=== PATIENT | female | born 2000 | race Caucasian/White ===

== ENCOUNTER 2020-08-21 17:11 | Inpatient (IN) | payer MEDICAID, SELFPAY ==
[2020-08-21] VITALS (10 sets, daily range): BP systolic 124–147; BP diastolic 73–94; PULSE 78–101; RESP 16–20; TEMP 36.2–36.6; O2SAT 98–100; BMI 29.1
--- NOTE | 2020-08-21 17:15 | DI.RAD_ITS ---
Exam(s) XR FOREARM RT XR WRIST RT COMPLETE EXAM: XR FOREARM RT and XR wrist RT complete CLINICAL HISTORY: Dog bite, R/O Fracture/Foreign body. TECHNIQUE: 2D digital imaging was performed. COMPARISON: No previous for comparison. FINDINGS: BONES: There is an acute transverse fracture through the distal metaphysis of the left ulna with vola r displacement of the distal fracture 1/2 shaft's width. There is also a linear osseous fragment at the medial aspect of the distal metaphysis of the left radius suspicious for fracture. This appears comminuted. There lucency seen in the distal metaphysis of the radius and the distal scaphoid on the lateral view which may be osseous puncture wounds. No bony destructive lesion is seen. SOFT TISSUE: Subcutaneous air is seen. IMPRESSION: 1. Moderately displaced distal ulnar fracture. 2. Mildly comminuted and displaced fracture along the medial aspect of the distal radial metaphysis. 3. Lucency seen within the distal scaphoid and the radial metaphysis suspicious for osseous puncture defects. 4. Excessive soft tissue edema and air consistent with puncture injury. DATA REPOSITORY: RADIATION DOSE DELIVERED:
--- NOTE | 2020-08-21 17:22 | ED.GENADUL_ITS ---
Discharge Plan Disposition Patient Disposition: [facility] INPATIENT Condition: Stable Discharge Details Clinical Impression: Dog bite of forearm, Fracture of radius and ulna, distal, open Admit Date/Time: 08/21/20 18:53 Admit Provider: Max Butler Attending Provider: Max Butler Primary Care Provider: Unknown,Unknown ED Provider: Jacey Catherine Medical Decision Making 20-year-old female presents to the ER with dog bite to right forearm which occurred just prior to arrival. 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 Upon initial presentation she has a bloodsoaked longsleeved T-shirt with bite darien. On forearm noted to have approximately four puncture wounds on the dorsum and palmar aspect of her right forearm. She has significant pain with movement. She is able to wiggle her fingers. Increased pain with wrist flexion. Cap refill less than 2 seconds. Bleeding is controlled dressing applied. She reports that the dog is up-to-date on vaccinations as far she knows. Patient states she is up-to-date on her tetanus vaccination. Let applied to puncture wounds, IV morphine, Zofran ordered normal saline 500 mL bolus, x-rays forearm. Imaging protocol: XR Right wrist. Views: 3 or more views. COMPARISON: No relevant prior studies available. FINDINGS: Bones/joints: A moderately displaced fracture is seen within the distal ulna, with approximately half shaft with dorsal displacement of the proximal ulnar shaft. A puncture osseous defect and mildly displaced, mildly comminuted fracture is seen within the distal radial metaphysis. A new rounded lucency is seen within the distal pole of the scaphoid near the articulation with the trapezium which could represent a puncture osseous injury. Soft tissues: Extensive subcutaneous air and likely hemorrhage is seen. IMPRESSION: 1. Mildly displaced, mildly comminuted fracture within the distal radial metaphysis with a puncture osseous defect, represent a direct penetrating fracture/injury. 2. Moderately displaced fracture within the distal ulna. 3. Possible direct puncture osseous defect/injury within the distal pole of the scaphoid. 4. Extensive soft tissue edema and air, concordant with a direct puncture injury from a dog bite. Thank you for allowing us to participate in the care of your patient. Dictated and Authenticated by: Melissa Sexton MD Patient continues to complain of pain and request more pain medication prior to x-ray, 0.5 mg Dilaudid IV given. 1816: Spoke with Dr. Butler on-call orthopedic surgeon who was able to personally view the x-rays he agrees to come and evaluate patient for possible fracture repair and washout. Discussed x-ray results with patient verbalized understanding. Patient appears much more comfortable after additional pain medication dose of 0.5 mg Dilaudid. Patient reports last meal was around 10 AM this morning. She verbalizes and is in understanding of plan of care. Unasyn 3gm IVPB ordered. Discussed Xray results with patient. 1843: Dr. Butler here at BS for patient eval and to consent for OR and admission. plan for admission to floor and OR, encouraged NPO status. Patient and boyfriend at bedside verbalized understanding. HPI General Mode of arrival: ambulatory . Date/Time Provider Initiated Documentation: 08/21/20 17:13 . Limitations to Documentation: no limitations . Information obtained by: patient . HPI Narrative: 20-year-old female presents to the ER with dog bite to right forearm which occurred just prior to arrival. 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 Upon initial presentation she has a bloodsoaked longsleeved T-shirt with bite darien. On forearm noted to have approximately four puncture wounds on the dorsum and palmar aspect of her right forearm. She has significant pain with movement. She is able to wiggle her fingers. Increased pain with wrist flexion. Cap refill less than 2 seconds. Bleeding is controlled dressing applied. She reports that the dog is up-to-date on vaccinations as far she knows. Patient states she is up-to-date on her tetanus vaccination. Related Data Home Medications Medication Instructions Recorded Confirmed medroxyprogesterone 150 mg IM [id number] 08/21/20 08/21/20 Allergies Allergy/AdvReac Type Severity Reaction Status Date / Time No Known Allergies Allergy Unverified 08/21/20 17:32 Review of Systems All systems reviewed & are unremarkable except as noted in HPI and below Musculoskeletal Musculoskeletal: Reports as per HPI, Reports deformity (Approximately four puncture wounds largest on the dorsum of her right forea), Reports arthralgias and Reports limited range of motion Integumentary/Breasts Skin/Breast: Reports lesions and Reports wounds (Dog bite) [facility] Social History Smoking/Tobacco Use Status: Never Smoking risk assessment performed?: Yes Alcohol Intake: current Alcohol Intake frequency: holidays/special occasions only Drug use: Daily Substance use type: marijuana Do you feel safe at home: Yes Do you feel safe in your relationship?: Yes Exam Const General: cooperative, healthy appearing, well developed, well groomed, in distress moderate and anxious Nutritional Appearance: average body habitus and well nourished Orientation: alert, awake and oriented x3 HENMT Head: normal to inspection, no palpable skull fracture, normocephalic and atraumatic Ears: hearing grossly normal bilaterally and external ears normal General nose exam: external nose normal and nares normal Face and sinus: normal facial exam and face symmetric Mouth: oral mucosae normal and lip normal Eyes General: appearance normal, both eyes and all related structures Neck Neck: normal visual inspection Resp Effort & Inspection: normal respiratory effort and able to speak in complete sentences Auscultation: clear to auscultation bilaterally Cardio Palpation: normal PMI Rate: regular rate Rhythm: regular rhythm Heart Sounds: S1 normal and S2 normal GI Inspection: normal to inspection, no edema and non-distended Palpation: soft Neuro General: patient alert, patient awake and patient oriented x3 Cranial Nerves: CN's II-XI intact bilaterally Cognition: normal cognition Speech: speech normal Extrem Right upper extremity: normal capillary refill, elbow/forearm Details: laceration and wrist Details: tenderness, swelling, abnormal ROM, penetrating wound forearm dorsal Details: multiple, normal vascular exam (Sensation intact) and radial pulse present Left upper extremity: normal to inspection, full ROM and normal capillary refill Elbow/forearm/wrist images: 1. Approximately 2.5 cm laceration 2. Puncture 3. Puncture wound 4. Puncture wound
[2020-08-21] MEDS: Ondansetron 4 MG/2 ML VIAL IVP (17:31)
[2020-08-21] MEDS: Normal Saline Flush 10 ML SYR IVP (17:31)
[2020-08-21] MEDS: Lidocaine/Epinephri/Tetracaine Topical Gel 3 ML TP (17:32)
[2020-08-21] MEDS: HYDROmorphone 2 MG/ML VIAL 0.5 MG IVP (18:15)
[2020-08-21] MEDS: Normal Saline 500 ML IV (18:16)
[2020-08-21] MEDS: AMPICILLIN/SULBACTAM 3 GM in Normal Saline 100 ML IVPB (18:27)
--- NOTE | 2020-08-21 18:50 | DI.VRAD_ITS ---
PROCEDURE INFORMATION: Exam: XR Right Wrist Exam date and time: 08/21/2020 5:55 PM Age: 20 years old Clinical indication: Injury or trauma; Other: Dog bite; Work related; Wrist; Left TECHNIQUE: Imaging protocol: XR Right wrist. Views: 3 or more views. COMPARISON: No relevant prior studies available. FINDINGS: Bones/joints: A moderately displaced fracture is seen within the distal ulna, with approximately half shaft with dorsal displacement of the proximal ulnar shaft. A puncture osseous defect and mildly displaced, mildly comminuted fracture is seen within the distal radial metaphysis. A new rounded lucency is seen within the distal pole of the scaphoid near the articulation with the trapezium which could represent a puncture osseous injury. Soft tissues: Extensive subcutaneous air and likely hemorrhage is seen. IMPRESSION: 1. Mildly displaced, mildly comminuted fracture within the distal radial metaphysis with a puncture osseous defect, represent a direct penetrating fracture/injury. 2. Moderately displaced fracture within the distal ulna. 3. Possible direct puncture osseous defect/injury within the distal pole of the scaphoid. 4. Extensive soft tissue edema and air, concordant with a direct puncture injury from a dog bite. Dictated and Authenticated by: Melissa Sexton MD. Ordering:MARINA Mari MD
--- NOTE | 2020-08-21 18:51 | DI.VRAD_ITS ---
PROCEDURE INFORMATION: Exam: XR Right Forearm Exam date and time: 08/21/2020 5:22 PM Age: 20 years old Clinical indication: Injury or trauma; Other: Bite by pitbull; Work related; Wrist; Left TECHNIQUE: Imaging protocol: XR Right forearm. Views: 2 views. COMPARISON: No relevant prior studies available. FINDINGS: Bones/joints: A moderately displaced fracture is seen within the distal ulna, with approximately half shaft with dorsal displacement of the proximal ulnar shaft. A puncture osseous defect and mildly displaced, mildly comminuted fracture is seen within the distal radial metaphysis. A new rounded lucency is seen within the distal pole of the scaphoid near the articulation with the trapezium which could represent a puncture osseous injury. Soft tissues: Extensive subcutaneous air and likely hemorrhage is seen throughout the forearm. IMPRESSION: 1. Mildly displaced, mildly comminuted fracture within the distal radial metaphysis with a puncture osseous defect, represent a direct penetrating fracture/injury. 2. Moderately displaced fracture within the distal ulna. 3. Possible direct puncture osseous defect/injury within the distal pole of the scaphoid. 4. Extensive soft tissue edema and air, concordant with a direct puncture injury from a dog bite. Dictated and Authenticated by: Melissa Sexton MD. Ordering:MARINA Mari MD
[2020-08-21] MEDS: ACETAMINOPHEN 1,000 MG/100 ML BTL 400 MG IVPB (19:36)
--- NOTE | 2020-08-21 19:42 | OCONE_ITS ---
Date of service: 08/21/20 Time of Service: 18:44 History of Present Illness History of Present Illness Chief Complaint: Right Forearm Dogbite Narrative: Kathrin is a 20-year-old [id number] female who presents to the emergency department after an aggressive dog bite by a pit bull to her right forearm. She is attempting to train the dog when the dog clamped down onto her arm. There is vigorous movement of the dog's head resulting in a crunching sensation that Kathrin heard. Eventually, she was released from the prescription but there is notable wounds to the right distal forearm. She currently reports excruciating pain about the right forearm, mostly dorsal and ulnar as well as volar at the level of the wrist. She feels unable to move any of the flexor or extensor tendons. This is due to pain. She denies numbness or tingling. She has no significant medical history. She denies pain in the elbow or any other sites of injury. Consults Consult date: 08/21/20 Requesting physician: Jacey Catherine Consult Reason Right open forearm fractures Assessment and Plan Assessment and plan (1) Dog bite of forearm: Status: Acute Qualifiers: Encounter type: initial encounter Laterality: right Qualified Code(s): S51.851A - Open bite of right forearm, initial encounter; W54.0XXA - Bitten by dog, initial encounter (2) Fracture of radius and ulna, distal, open: Status: Acute Assessment and plan: Kathrin is a 20-year-old [id number] female who suffered a vicious dog bite to the right forearm. This is a crush type injury to the forearm with resulting open fractures of the distal radius and the ulna. The ulna fracture is notably displaced. There is also a puncture wound near this area which would suggest direct penetration into the bone both of the ulna and of the radius. Given these injuries alone they deserve to be fully irrigated and debrided. Unfortunately, her examination is notably limited. She does not have any numbness or tingling but she does have significant pain with any palpation or attempted passive motion of the fingers. Therefore, I must consider an ongoing and developing compartment syndrome. This would fit with the mechanism of injury, dog bite from a pit bull. This not only involves the intense bite but also the generations of the dog's head at the same time. With this information the examination I recommend urgent irrigation and debridement of the bite wounds. I would also directly irrigate and debride the bony injuries and likely reduce and pin the distal ulna. Fortunately, she does not seem to have any vascular or nerve injury. However, I do believe she may have a developing compartment syndrome of the forearm due to the amount of pain and pain with passive motion. At the time of the operation I would perform an open decompression of the volar, distal forearm. If there is bulging of the muscle in this area then I would continue to extend that as large as needed to decompress the volar compartment. Given no current neurologic symptoms I do not think we have to decompress the carpal tunnel. Given her clinical presentation compartment syndrome has to be considered. I would therefore leave the wound open and plan for return to the to the operating room for reevaluation and closure in 48 hours. I would also keep her on IV antibiotics to cover for gram- negative organisms likely from the mouth of the dog. I discussed the technical procedures. She does express concern about her tattoo on her forearm but I was very honest with Kathrin that not decompressing an ongoing compartment syndrome could be devastating. There is clear evidence that the sooner this is release to better and any delay in treatment will lead to dysfunction of the hand and forearm. She did receive a dose of Unasyn in the emergency department. I offered to redress the wounds but she would asked that I do not touch her arm anymore. Therefore, she is dressed in light wet gauze wrapped on a Wilfrido splint. I reviewed the risk of the procedure to include bleeding, infection, pain, stiffness, damage to nerves and vessels, damage to muscle tendons, need for repeat procedures, need for plastic surgery skin closure, malunion, nonunion, hardware failure. Despite these risks, she elects to proceed. Qualifiers: Encounter type: initial encounter Open fracture type: open type I or II Laterality: right Qualified Code(s): S52.501B - Unspecified fracture of the lower end of right radius, initial encounter for open fracture type I or II; S52.601B - Unspecified fracture of lower end of right ulna, initial encounter for open fracture type I or II Review of Systems All systems reviewed & are unremarkable except as noted in HPI and below [facility] Social History Smoking/Tobacco Use Status: Never Smoking risk assessment performed?: Yes Alcohol Intake: current Alcohol Intake frequency: holidays/special occasions only Drug use: Daily Substance use type: marijuana Do you feel safe at home: Yes Do you feel safe in your relationship?: Yes Exam Narrative Exam Narrative: Kathrin is sitting up in the hospital stretcher. Her right arm is loosely bandaged and resting on a WILFRIDO splint. She is holding the hand and fingers in a slightly flexed position on the splint itself. She refuses any direct examination due to pain. Unable to evaluate the forearm which shows multiple puncture wounds over the dorsum of the hand. The largest 1 in the transverse laceration at approximately the mid distal third of the dorsal forearm. There is fat evident within the wound itself. There at least 3 of the puncture wound is seen more distally over the dorsum, 1 at the level of the ulna. Volarly, she is very difficult to examine due to a slightly flexed posture. She has excruciating pain with any direct palpation or attempted extension of the fingers of the wrist. There is notable swelling over the volar aspect of the distal forearm with only 1 small puncture wound seen off to the side. There is hyperemia seen in this area and some early ecchymosis. It would appear that the teeth did not penetrate on the volar side like it did on the dorsal side. She does have a palpable radial pulse although she has pain with direct palpation of this area. She has cap refill less than 2 seconds. She endorses full sensation of the median, radial, ulnar nerve. She is unable to demonstrate any active finger function due to pain. Likewise, any passive evaluation is significant limited due to pain. Results Last Vital Signs Pulse 78 08/21/20 17: Resp 20 08/21/20 17:21 BP 140/81 08/21/20 17:21 Pulse Ox 99 08/21/20 17:21 Imaging Imaging Studies: X-ray of the right wrist and forearm demonstrate an open fracture of the distal radius and ulna. Distal ulna is fractured at the level of her phi seal scar. There is complete displacement of the distal aspect of the distal ulna. There appears to be penetrating teeth bite into the distal radius with associated fracture of the metaphysis with some mild comminution of the ulnar aspect of the distal radius. There is no displacement of the fracture. There is no malalignment. There is notable air within the soft ti ssues due to the open injury.
[2020-08-21 19:50] LABS: Source Nasal/Nares
[2020-08-21] MEDS: Ketorolac 15 MG/ML VIAL IVP (19:57)
--- NOTE | 2020-08-21 20:26 | W.ANESPRE ---
General Info Date of Service Date Performed: 08/21/20 Height: 5 ft 5 in Weight: 79.379 kg Body Mass Index (BMI): 29.1 Meds Allergies and Home Medications Allergies Allergy/AdvReac Type Severity Reaction Status Date / Time No Known Allergies Allergy Unverified 08/21/20 17:32 Home Medication Medication Instructions Recorded medroxyprogesterone 150 mg IM [id number] 08/21/20 Current Visit Medications: Current Medications Generic Name Dose Route Start Last Admin Trade Name Freq PRN Reason Stop Dose Admin Hydromorphone HCl 1 mg 08/21/20 18:52 Hydromorphone 2 Mg/Ml Vial IVP Q2H PRN PRN Sodium Chloride 500 mls @ 0 mls/hr 08/21/20 17:20 Saline 500ml Bag IV PRN PRN As Directed Acetaminophen 1,000 mg in 100 mls @ 400 mls/hr 08/21/20 19:00 08/21/20 19:51 Ofirmev IVPB Infused Q8H JUAN JOSE Infusion Ringer's Solution 1,000 mls @ 100 mls/hr 08/21/20 19:00 IV INFUSION JUAN JOSE IV Miscellaneous Supplies 1 each 08/21/20 17:30 Iv Access IV DIRECTED JUAN JOSE Ketorolac Tromethamine 15 mg 08/21/20 18:52 08/21/20 19:57 Ketorolac 15 Mg/Ml Vial IVP 08/26/20 18:51 15 mg Q6H PRN PRN Administration Ondansetron HCl 4 mg 08/21/20 18:52 Ondansetron 4 Mg/2 Ml Vial IVP Q6H PRN PRN Nausea Sodium Chloride 0 ml 08/21/20 17:20 08/21/20 17:31 Normal Saline Flush 10 Ml Syr IVP 20 ml PRN PRN Administration PFSH Active Problems Active Problems: Problem Status Onset Code Dog bite of forearm S51.859A, W54.0XXA Fracture of radius and ulna, distal, open S52.509B, S52.609B Tobacco Smoking/Tobacco Use Status: Never Alcohol Alcohol Intake: current Alcohol intake frequency: holidays/special occasions only Substance Use Substance use: Daily Substance use type: marijuana Vital Signs and Lab Results Vital Signs Most Recent Vital Signs in EMR: Most Recent Vital Signs Temp Pulse Resp BP Pulse Ox 36.5 C 84 16 134/79 98 06/14/21 19:45 08/21/20 19:45 08/21/20 19:45 08/21/20 19:45 08/21/20 19:45 Lab Results Blood Type / Crossmatch: No Data to Display Complete Blood Count: No Data to Display Complete Metabolic Panel: No Data to Display Liver Function Panel: No Data to Display Coagulation Panel: No Data to Display Cardiac Panel: No Data to Display Arterial Blood Gas: No Data to Display Venous Blood Gas: No Data to Display Pancreas Panel: No Data to Display Thyroid Panel: No Data to Display Infectious Disease: Coronavirus (COVID-19)(PCR) Pending 08/21/20 19:12 08/21/20 Coronavirus 2019 Source Nasal/nares 08/21/20 19:12 08/21/20 Blood Cultures: No Data to Display Toxicology Panel: No Data to Display Panel: No Data to Display Anesthesia Assessment and Plan Anesthesia History Personal History: No History of Anesthesia Complications Family History: No Family History of Anesthesia Complications Exercise Tolerance Exercise Tolerance: Metabolic Equivalents>4 Pertinent Negatives Pertinent Negatives: No Symptoms of GERD (Well controlled ), No Major Cardiovascular Symptoms or Complaints, No Major Pulmonary Symptoms or Complaints (+ snores, vaping ), No History of CVA/TIA and Other Cardiac & Pulmonary Exam Cardiac Exam: Normal S1/S2 Heart Sounds Pulmonary Exam: Clear Bilateral Breath Sounds Airway Exam Known Difficult Airway: No Mallampati Class: 4 Mouth Opening: Narrow (< 3cm) Thyromental Distance: Less than 3 cm Neck Range of Motion: Full ROM Neck Circumference: Normal Teeth Condition: Normal Dentition ASA Classification ASA Score: ASA 2 Emergency Case?: Yes NPO Status NPO Status: NPO Clears >2 hours, Solids >8 hours Status Status: Not Per Patient and Pt. refuses testing, she was counseled on anesthesia risks Anesthesia Plan Resuscitation Status: Full Code Anesthesia Technique: General Anesthesia Airway Planned: Endotracheal Tube Monitors Used: Standard Monitors
--- NOTE | 2020-08-21 20:45 | DI.RAD_ITS ---
Exam(s) XR WRIST RT LIMITED EXAM: XR WRIST RT LIMITED CLINICAL HISTORY: OPEN RADIUS ULNA FX TECHNIQUE: 2D and realtime digital imaging was performed. CONTRAST MATERIAL: Refer to procedure report. COMPARISON: No exams were available for comparison FINDINGS: Fluoroscopy was provided for Dr. Butler during the performance of a reduction and percutaneous pin divya of the ulnar fracture. Please refer to the procedure report for complete details. Ka,r=0.7 mGy IMPRESSION: RADIATION DOSE DELIVERED:
[2020-08-21] MEDS: Lactated Ringers 1,000 ML 100 ML IV (21:25)
[2020-08-21] MEDS: Bupivacaine 0.25% Pres-Free 30 ML VIAL (22:24)
[2020-08-21 23:09] LABS: COVID-19 PCR Negative (Negative)
--- NOTE | 2020-08-21 23:09 | ROE_ITS ---
Date of service: 08/21/20 Time of Service: 23:09 Operative Note Operative Note DATE OF PROCEDURE: 08/21/20 PRE-OP DIAGNOSIS: Open Right Distal Radius And Ulna Fracture from Dog Bite POST-OP DIAGNOSIS: same PROCEDURE: Irrigation and Debridement of Right Forearm Dog Bite and Open Distal Radius and Ulna Fracture, Open Reduction and Pinning of Distal Ulna Fracture SURGEON: Max Butler CABLE INSTALLATION TECHNICIAN: Genet Schwab ANESTHESIA TYPE: General LMA/ETT Refer to Anesthesia Record ESTIMATED BLOOD LOSS: 5 PATHOLOGY: none sent TOURNIQUET TIME: 0 COMPLICATIONS: None Patient was transported to: PACU Patient's condition: stable Indications: 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 The dog grabbed hold of her right arm and caused an open distal radius and ulna fracture. She is seen in the emergency department I recommended operative intervention. I reviewed the risk of the procedure to include bleeding, infection, pain, stiffness, damage to nerves and vessels, damage to muscle and tendons, need for the procedures, skin healing difficulty, weakness. Despite these risk, she elects to proceed. Findings: The bulk of the trauma was dorsal. There is significant muscular damage throughout the dorsum of the forearm, however, tendons of all 6 compartments over the dorsum of the arm are intact. There is stripping of soft tissue from the dorsal aspect the distal ulna with a displaced fracture of the distal most aspect of the ulna. Additionally, there are 2 puncture wounds into the radius however there is no true fracture line appreciated traversing the entirety of the distal radius metaphysis. The volar and dorsal compartments were relatively soft and were able to be closed without tension. Procedure Description: Kathrin was greeted in the preoperative holding area. Her identity and site were confirmed. The consent was reviewed the patient signed in the emergency department. She is taken to the operating room placed in supine position. General anesthetic was administered. The right arm was placed onto a hand table. A thorough examination of the right arm was performed while she was under anesthesia and prior to starting the case. This showed that the volar forearm was quite soft. She limited any significant examination in the emergency department but on the hand table there was no tenseness at all to the arm. There is only 1 puncture wound seen on the volar aspect and then just some generalized hyperemia and ecchymosis of the skin. At this point, I do not think would be necessary to perform the compartment release volarly although we would open up the volar compartment through one of the puncture sites to investigate. She did receive 1 dose of Unasyn in the emergency department on arrival and she received 2 g of cefazolin preoperatively for prophylactic treatment. A timeout was performed for safe surgery. The right upper extremity was prepped with Betadine. A longitudinal incision was made over the dorsum of the forearm connecting some of the puncture wounds of the forearm. Immediately, there was notable muscular damage seen within the dorsal forearm. The majority of his damage occurred at the level of the musculotendinous junction in the distal one third of the forearm. There were tendons visible within the wound with some not having any muscular attachments. There is no gross debris. There is no necrotic tissue. At this point, an inventory of the dorsal anatomy was taken. I started with the first compartment and went through all 6 dorsal extensor compartments to evaluate the tendons to make sure the tendons were attached and there is no tendon damage. There was substantial muscular damage associated with these muscle?tendon unit, however, all tendons were intact. Once this was completed I then further investigated the bony injury. There is notable periosteal and deep damage to the distal ulna. There is a small hole within the extrinsic ligaments around the DRUJ where the distal ulna was broken. Over the dorsal, distal radius there were 2 puncture wounds seen with a small bony fragment associated with the more ulnar 1. However, further investigation did not show any traversing fracture line noted manipulation of the radius show any instability of the distal radius. 2 L of normal saline were then irrigated through the arm in this region pain reticular attention to the bony injuries as well. Attention was then turned to the volar wound. A 4 cm incision was made over the volar?ulnar aspect of the distal radius. This was taken down sharply the skin. There was a small puncture of the fascia in this area but there was no muscular damage is seen on the dorsal side. The volar fascia was incised and there was no protruding muscle appreciated. With the fascia elevated into different directions I was able to palpate the volar forearm. There is no notable tissue damage seen like on the dorsum. The flexor tendons were identified. They were retracted and the median nerve was identified. While there was some ecchymosis in this area there is no torn tissue. Once again, the muscle was soft compartments were soft and there is no bulging. I then irrigated these wounds with another 1 L of normal saline. Further attention was then turned to the distal ulna fracture. This is highly unstable. With a volar directed force against the distal ulna I was able to reduce the distal ulna and confirmed this visually through the dorsal wound. A 0.045 K wire was then inserted to the ulnar skin and advanced onto the tip of the styloid. This was then advanced across the distal ulna. Maintaining reduction was challenging but we were able to obtain adequate reduction with a single K wire confirmed with fluoroscopy. This appeared stable. There was some disruption of the DRUJ but this seemed also more stable once this fracture fragment was pinned. A small amount of the disruption of the DRUJ ligaments were then sutured together with a #3-0 Vicryl. A second look was performed and while there was some skin damage at the skin edges there is no other necrotic tissue apparent. I used #3-0 Vicryl to reapproximate the skin edges loosely and then used a 4-0 nylon to close the skin in interrupted fashion. This was done both dorsal and volar without difficulty. No tourniquet was used and there was no significant blood loss. Fingers remain warm and well-perfused in the case. The K wire was then cut and bent off the skin. Xeroform was applied underneath the K wire as well as on the dorsal and volar wounds. A Frandy ball was placed on the end of the K wire. The wounds were then padded with 4 x 4s and wrapped loosely with Kerlix for padding. A short arm splint was then applied with the wrist in some extension for reapproximation of the muscle of the dorsal forearm. She was in awaken from anesthesia and transferred back to the hospital bed in stable condition. She is taken to the PACU for recovery. At the end the case all counts are correct. There was significant muscular damage which was unable to be repaired directly but the tendons were still intact and therefore does have prognosis to regain function about the extensors of the hands finger. I do worry about skin breakdown, however, in the situations the true extent of the injury will not be readily visible for another few days if not longer. This will need to be followed in the very well may require secondary scar revision. She will be kept overnight for evaluation and monitoring. She is to keep the right upper extremity elevated at all times. We will administer at least 24 hours of Unasyn postoperatively the potential discharge to home tomorrow depending on how she is doing with pain control.
[2020-08-22] VITALS (7 sets, daily range): BP systolic 124–142; BP diastolic 73–84; PULSE 68–100; RESP 17–18; TEMP 36–37; O2SAT 96–99
[2020-08-22] MEDS: Normal Saline 500 ML 30 ML IV (00:15)
[2020-08-22] MEDS: oxyCODONE 5 MG TAB PO ×3 (00:47→14:44)
[2020-08-22] MEDS: AMPICILLIN/SULBACTAM 3 GM in Normal Saline 100 ML IVPB ×3 (00:48→12:11)
[2020-08-22] MEDS: Ketorolac 15 MG/ML VIAL IVP ×2 (02:02→07:55)
[2020-08-22] MEDS: ACETAMINOPHEN 1,000 MG/100 ML BTL 400 MG IVPB (03:57)
[2020-08-22] MEDS: Lactated Ringers 1,000 ML 100 ML IV (03:58)
[2020-08-22] MEDS: HYDROmorphone 2 MG/ML VIAL 1 MG IVP (09:21)
[2020-08-22] MEDS: Ondansetron 4 MG/2 ML VIAL IVP (09:39)
--- NOTE | 2020-08-22 10:13 | PGE_ITS ---
Date of Service Date of service: 08/22/20 Time of Service: 10:13 Assessment and Plan Assessment and plan (1) Fracture of radius and ulna, distal, open: Status: Acute Qualifiers: Encounter type: initial encounter Open fracture type: open type I or II Laterality: right Qualified Code(s): S52.501B - Unspecified fracture of the lower end of right radius, initial encounter for open fracture type I or II; S52.601B - Unspecified fracture of lower end of right ulna, initial encounter for open fracture type I or II (2) Dog bite of forearm: Status: Acute Assessment and plan: Kathrin is postop day #1 from irrigation debridement of right open distal radius and ulna fractures from a dog bite with pinning of the distal ulna. At the time of surgery the volar compartment is notably soft. There was blunt trauma to the volar side the form from the dog bite where the majority of the trauma seem to be focused over the dorsum. I did perform a limited opening of the volar forearm with inspection of the volar tissues and skin closure. She does have some pain with passive extension but this is to be expected from the injury. I do not think this represents a developing com partment syndrome. However, I think is important we continue to follow. I like her to stay through the day today for further observation. She has only had 2 pain pills which is to be expected. If we see increasing pain requirements and decreasing tolerance of passive extension then I think return to the operating room for a second look and possible volar compartment release may be necessary. She will continue on Unasyn for prophylactic infection treatment due to the dog bite. She is to keep the right arm elevated as much as possible. We will reevaluate his afternoon. Qualifiers: Encounter type: initial encounter Laterality: right Qualified Code(s): S51.851A - Open bite of right forearm, initial encounter; W54.0XXA - Bitten by dog, initial encounter Subjective Subjective Interval history since last seen: Kathrin reports to be having some pain about the right hand. She describes it mostly as the ache. She has received 2 doses of oxycodone since last night. She does have some current nausea. She denies any numbness or tingling of the hand. Exam Narrative Exam Narrative: Sitting upright in the bed. Right upper extremity is splinted. Her hand is in a slightly extended position to the wrist with flexion of the fingers. There is no significant discoloration of the fingers nor notable swelling. Cap refill less than 2 seconds. On testing she does have some reported tingling over the palmar aspect of the thumb. The radial and ulnar nerve are completely intact with gross sensation. The remainder of the median nerve testing is also grossly intact to the palmar aspect of the index and middle finger. She is able demonstrate some thumb extension and flexion. She is very reluctant to do any finger extension or flexion. She tolerates passive extension although this was not pushed knowing the injury of the dorsum of the forearm. She was able to allow me to passively extend the fingers fully although this causes pain. Once I moved him twice that she seemed to tolerate this. Objective Last Vital Signs Temp 37.0 C 08/22/20 07:56 Pulse 93 H 08/22/20 07:56 Resp 18 08/22/20 07:56 BP 142/82 H 08/22/20 07:56 Pulse Ox 96 08/22/20 07:56 Laboratory Results - last 24 hr 08/21/20 19:12 COVID-19 Source Nasal/nares SARS-CoV-2 (PCR) Negative
--- NOTE | 2020-08-22 11:46 | INITIAL_ITS ---
- If Service Date Differs Date of service: 08/22/20 Time of Service: 11:46 Care Management Initial Assess REASON FOR HOSPITALIZATION:: Right Open Forearm fracture from dog bite PAST MEDICAL HISTORY/PAST SURGICAL HISTORY:: No significant medical/surgical history reported. PREVIOUS FUNCTIONAL STATUS/SOCIAL/FAMILY SUPPORTS:: Kathrin lives in [place]. 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 She is independent at baseline. CURRENT FUNCTIONAL STATUS:: Kathrin was walking around her room when CM met with her. She described the event that brought her here- she was training a dog for the first time and it bit her aggressively. She expressed concern about her other classes which she had to cancel this week due to her injury. Dr. Butler visited during the conversation, and reported that as long as her pain is well controlled, she should be able to return home this afternoon. She is agreeable to returning home. CM will continue to follow. ADVANCE DIRECTIVES:: None on file, CM will offer forms. Has patient been provided with info about the portal/API?: Yes Did the patient sign up for the portal?: No CODE STATUS:: Full Code INSURANCE COVERAGE / FINANCIAL ISSUES:: [employer] CURRENT HOME/COMMUNITY SERVICES/EQUIPMENT:: No current services or equipment. PRIMARY CARE PHYSICIAN:: unknown POTENTIAL DISCHARGE NEEDS:: PCP attachment, follow up appt PATIENT/FAMILY EDUCATION NEEDS:: Review discharge instructions, discussion of self care needs including ask me three. ANTICIPATED BARRIERS TO DISCHARGE:: None identified. TRANSPORTATION:: Via private vehicle by her s/o. PLAN:: Kathrin will return home with no services at this time. Her s/o will drive her home via private vehicle. She will follow up with Ortho and discharge plan of care. She is happy to be returning home today.
--- NOTE | 2020-08-22 12:58 | DSE_ITS ---
Date of service: 08/22/20 Time of Service: 12:59 DS: Diagnosis Discharge Diagnosis (1) Fracture of radius and ulna, distal, open: Status: Acute (2) Dog bite of forearm: Status: Acute Discharge Plan Disposition Condition: Stable Discharge Details Reason For Visit: Right Open Forearm Fracture From Dog Admit Date/Time: 08/21/20 18:53 Admit Provider: Max Butler Attending Provider: Max Butler Primary Care Provider: Unknown,Unknown Hospital Course Hospital Course: Kathrin was admitted to the medical surgical floor after undergoing urgent irrigation debridement of open wounds and fractures of her right forearm. She tolerated the procedure well and received both preoperative and postoperative antibiotics with gram-negative coverage. Her pain was controlled postoperatively on oral analgesics. While she did have some pain that appeared to be stable and not representing compartment syndrome. Home Meds and New Rx's Prescriptions: New acetaminophen 500 mg tablet 500 mg PO Q6H PRN PRN (Reason: pain) Qty: 40 RF: 3 hydrocodone-acetaminophen 5-325 mg tablet 1 tab PO Q4H PRN (Reason: pain) Qty: 8 RF: 0 amoxicillin-pot clavulanate 875-125 mg tablet 1 tab PO BID Qty: 10 RF: 0 Continued medroxyprogesterone 150 mg/mL suspension 150 mg IM [id number] RF: 0 Discharge Instructions Additional Instructions: Activity: You should keep the hand/wrist elevated as much as possible. You may perform light activities with the splint in place. Use her other hand to move the fingers up and down, passive motion, as much as she would like. If he has significant increase in pain with any attempt at this passive motion, please contact our [facility] immediately and/or go to the emergency department. Dressing/Cast: Your splint should stay in place at all times. Do NOT get it wet. You may loosen the BRIANNA wrap if you feel it is too tight and then rewrap more loosely. Medications: - You should take Tylenol (500mg every 6 hours) and Ibuprofen (600mg every 8 ho urs) for baseline pain control. - You have been prescribed a stronger pain medication, Hydrocodone, for breakthrough pain. - You may apply ice over the wrist, just double bag so it doesn't get wet. Follow-up: 10-14 days Stand Alone Forms: Nursing Discharge Form Referrals: [facility],Max G, MD [ [facility] STAFF PHYSICIAN] - Equipment/Supplies: Splint and Sling Activity:: Elevate Remove Dressings/Wound Care:: Do Not Remove Shower/Bathe:: Cover Diet:: As Tolerated DS: Summary Time Spent with Patient providing and/or coordinating discharge services: Less than 30 minutes Status at Discharge Functional status at discharge: independent ambulation Overall status at discharge: patient is not back to baseline Mental Status: mental status grossly normal Speech and Movement: speech and movement normal Mood: congruent mood Affect: normal affect Exam Psych Mental Status: mental status grossly normal Speech and Movement: speech and movement normal Mood: congruent mood Affect: normal affect DS: Data Vitals/I&O Vitals and I&O: Vital Signs Temperature 36.8 C 08/22/20 11:28 Temperature Source Tympanic 08/22/20 11:28 Pulse 100 H 08/22/20 11:28 Pulse Rhythm Regular 08/22/20 07:55 Respiratory Rate 18 08/22/20 11:28 Respiratory Effort Non-Labored 08/22/20 07:55 Respiratory Depth Normal 08/22/20 07:55 Respiratory Pattern Normal 08/22/20 07:55 Blood Pressure 130/76 08/22/20 11:28 Blood Pressure Position Sitting 08/21/20 17:21 Pulse Oximetry 98 08/22/20 11:28 Oxygen Delivery Method Room Air 08/22/20 11:28 Oxygen Flow Rate 0 08/22/20 11:28 Pain Level 4 08/22/20 11:28 Comment 08/22/20 01:00 Intake & Output 08/21/20 08/22/20 08/22/20 23:59 11:59 23:59 Intake Total 730 / 730 1001.5 / 1001.5 Output Total 0 / 0 728 / 728 Balance 730 / 730 273.5 / 273.5 Weight 79.379 kg Intake: IV 700 / 700 1001.5 / 1001.5 Oral 30 / 30 Output: Urine 728 / 728 Emesis 0 / 0 Other: Urine Color Light [place] Urine Appearance Clear Urine Odor Strong Comment Kathrin did not use call beel to ambulate to multiple times. Denies and voiding concerns. Emesis Description None Voiding Methods Toilet Data Completed and Pending Labs on day of discharge: Labs from last 24 hours 08/21/20 19:12 COVID-19 Source Nasal/nares SARS-CoV-2 (PCR) Negative [facility] Social History Smoking/Tobacco Use Status: Never Smoking risk assessment performed?: Yes Alcohol Intake: current Alcohol Intake frequency: holidays/special occasions only Drug use: Daily Substance use type: marijuana Do you feel safe at home: Yes Do you feel safe in your relationship?: Yes
--- NOTE | 2020-08-22 14:26 | W.ANESPOSTOP ---
Postoperative Evaluation Date, Time and Location Date Performed: 08/22/20 Time Performed: 14:27 Patient Location: Med/Surg Vital Signs Most Recent Imported Vital Signs: Most Recent Vital Signs Temp Pulse Resp BP Pulse Ox 36.8 C 100 H 18 130/76 98 08/22/20 11:28 08/22/20 11:28 08/22/20 11:28 08/22/20 11:28 08/22/20 11:28 Pain Score Most Recent Pain Score: Most Recent Pain Score Pain Level 4 08/22/20 11:28 Assessment Mental Status: Awake (Alert & Oriented to Patient Baseline) Airway and Respiratory Function: Patent airway with normal (patient baseline) respiratory exam Cardiovascular Function: Hemodynamically Stable Hydration Status: Adequately Hydrated Nausea & Vomiting: No Nausea or Vomiting Pain: Pain is tolerable/mild (<5/10) Peripheral Nerve Block: Patient did not receive a nerve block
--- NOTE | 2020-08-22 16:48 | PDOC.CMDIS ---
- If Service Date Differs Date of service: 08/22/20 Time of Service: 16:48 LACE Index Scoring Tool - Questions: Length of Stay (in days): 1 Acuity (Admit via E.D.?): Yes E.D. Visits: 1 - Answers: Total Score: 5 Risk of Readmission: Low Risk Care Management Discharge Reason for Hospitalization: Right Open Forearm fracture from dog bite Discharge Plan: Kathrin will return home with no services at this time. Her s/o will drive her home via private vehcile. She will follow up with Ortho, her PCP and discharge plan of care. She is happy to be going home today. Patient/Family Education Needs: Review discharge instructions regarding activity levels and medications, discussion of self care needs including ask me three.
--- NOTE | 2020-08-23 10:23 | CHAPLAIN ---
Kathrin was resting in bed when I visited. She told me about the dog bite that led to her arm being fractured in two place. 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 Kathrin said the dog bite her very aggressively.
--- NOTE | 2020-08-23 10:36 | W.ANESPOSTOP ---
Postoperative Evaluation Date, Time and Location Date Performed: 08/23/20 Time Performed: 10:37 Patient Location: Day Surgery Unit Vital Signs Most Recent Imported Vital Signs: Most Recent Vital Signs Temp Pulse Resp BP Pulse Ox 36.8 C 100 H 18 130/76 98 08/22/20 11:28 08/22/20 11:28 08/22/20 11:28 08/22/20 11:28 08/22/20 11:28 Most Recent Vital Signs Temp Pulse Resp BP Pulse Ox 36.8 C 100 H 18 130/76 98 08/22/20 11:28 08/22/20 11:28 08/22/20 11:28 08/22/20 11:28 08/22/20 11:28 Most Recent Manually Entered Vital Signs: Adult Blood Pressure: 117/71 Heart Rate: 72 Respirations: 16 Oxygen Saturation (%): 99 Temperature (C): 36.5 C Pain Score (0-10 Scale): 0 Pain Score Most Recent Pain Score: Most Recent Pain Score Pain Level 8 08/22/20 14:44 Assessment Mental Status: Awake (Alert & Oriented to Patient Baseline) Airway and Respiratory Function: Patent airway with normal (patient baseline) respiratory exam Cardiovascular Function: Hemodynamically Stable Hydration Status: Adequately Hydrated Nausea & Vomiting: No Nausea or Vomiting Pain: Pt. Denies Any Pain Peripheral Nerve Block: Patient did not receive a nerve block
== END 2020-08-22 15:00 | disposition home or self-care (01) | DRG 512 ==
LOC: ER 19:21 → MS 20:48
PROVIDERS: Admitting Provider Student in an Organized Health Care Education/Training Program; Emergency Provider Registered Nurse Emergency; Visit Provider Student in an Organized Health Care Education/Training Program
PROC: 0PSK04Z Reposition Right Ulna with Internal Fixation Device, Open Approach (ICD-10-PCS; CPT 25652; principal; 2020-08-21 21:15)
DX: S52.691B Other fracture of lower end of right ulna, initial encounter for open fracture type I or II (principal); S52.591B Other fractures of lower end of right radius, initial encounter for open fracture type I or II; W54.0XXA Bitten by dog, initial encounter
CPT/HCPCS: 25652; 11010; 87635; 96361; 96365; 96375; 99285; 73090; 73100; 73110; 99284; J0131; J0295; J0690; J1100; J1885; J2001; J2405; J2704

== ENCOUNTER 2020-09-04 14:57 | Outpatient (CLI) | payer MEDICAID, SELFPAY ==
--- NOTE | 2020-09-04 14:15 | DI.RAD_ITS ---
Exam(s) XR WRIST RT LIMITED EXAM: XR WRIST RT LIMITED CLINICAL HISTORY: F/U FRACTURE. TECHNIQUE: 2D digital imaging was performed. COMPARISON: CR,XR XR WRIST RT COMPLETE from 08/21/2020 FINDINGS: There has been interval placement of a fixation in through the distal ulna fracture site improved ali gnment this level. Lung truly orientated subcortical lucency in distal radius is noted, unchanged. Also small thin calc ific density parallel to the cortical surface on the opposite-medial aspect distal radius. IMPRESSION: DATA REPOSITORY: RADIATION DOSE DELIVERED:
== END 2020-09-04 14:58 | disposition home or self-care (01) ==
LOC: DIORS 14:57
PROVIDERS: Visit Provider Student in an Organized Health Care Education/Training Program
DX: S52.501E Unspecified fracture of the lower end of right radius, subsequent encounter for open fracture type I or II with routine healing (principal); S52.601E Unspecified fracture of lower end of right ulna, subsequent encounter for open fracture type I or II with routine healing; X58.XXXD Exposure to other specified factors, subsequent encounter
CPT/HCPCS: 73100

== ENCOUNTER 2020-09-29 11:42 | Outpatient (CLI) | payer MEDICAID, SELFPAY ==
--- NOTE | 2020-09-29 11:30 | DI.RAD_ITS ---
Exam(s) XR WRIST RT LIMITED EXAM: XR WRIST RT LIMITED INDICATION: fx. COMPARISON: XR WRIST RT LIMITED from 08/21/2020 CR,XR XR FOREARM RT from 08/21/2020 XR WRIST RT LIMITED from 08/21/2020 CR,XR XR WRIST RT COMPLETE from 08/21/2020 CR,XR XR FOREARM RT from 08/21/2020 CR,XR XR WRIST RT COMPLETE from 08/21/2020 CR XR WRIST RT LIMITED from 09/04/2020 CR XR WRIST RT LIMITED from 09/04/2020 TECHNIQUE: 2D digital imaging was performed. FINDINGS: A pin remains in place in the distal ulna, Unchanged in alignment. Lucencies in the distal radius a re unchanged. Soft tissue swelling persists. DATA REPOSITORY: RADIATION DOSE DELIVERED:
== END 2020-09-29 11:43 | disposition home or self-care (01) ==
LOC: DIORS 11:43
PROVIDERS: PCP Physician Assistant; Referring Provider Physician Assistant; Visit Provider Physician Assistant
DX: S52.501E Unspecified fracture of the lower end of right radius, subsequent encounter for open fracture type I or II with routine healing (principal); S52.601E Unspecified fracture of lower end of right ulna, subsequent encounter for open fracture type I or II with routine healing; X58.XXXD Exposure to other specified factors, subsequent encounter
CPT/HCPCS: 73100

== ENCOUNTER 2021-02-19 14:11 | Outpatient (CLI) | payer MEDICAID, SELFPAY ==
--- NOTE | 2021-02-19 14:00 | DI.RAD_ITS ---
Exam(s) XR WRIST RT LIMITED EXAM: XR WRIST RT LIMITED CLINICAL HISTORY: R wrist fx. TECHNIQUE: 2D digital imaging was performed. COMPARISON: CR,XR XR WRIST RT COMPLETE from 08/21/2020 CR,XR XR WRIST RT COMPLETE from 08/21/2020 CR XR WRIST RT LIMITED from 09/29/2020 FINDINGS: The pain is been removed from the distal ulna and distal ulna presently appears unremarkable. No new fractures evident. Lucency in the medial aspect distal radius is no longer evident. However, more laterally in distal radius lucency is again noted. No cortical breakthrough. Previously described area in the distal metaphysis-epiphysis the radius on the lateral aspect appears unchanged. IMPRESSION: DATA REPOSITORY: RADIATION DOSE DELIVERED:
== END 2021-02-19 14:12 | disposition home or self-care (01) ==
LOC: DIORS 14:12
PROVIDERS: PCP Physician Assistant; Referring Provider Physician Assistant; Visit Provider Physician Assistant
DX: S52.501E Unspecified fracture of the lower end of right radius, subsequent encounter for open fracture type I or II with routine healing (principal); S52.601E Unspecified fracture of lower end of right ulna, subsequent encounter for open fracture type I or II with routine healing
CPT/HCPCS: 73100

== ENCOUNTER 2021-03-09 08:49 | Emergency (ER) | payer MEDICAID, SELFPAY ==
[2021-03-09 09:00] VITALS: BP 109/72; PULSE 108; RESP 26; TEMP 36.9; O2SAT 97
--- NOTE | 2021-03-09 09:00 | RT.EKG_ITS ---
APPROVED REPORT Exam: Resting ECG Reason for Exam: tachycardia Patient Location: E HR:98 bpm ECG Measurements Heart Rate 98 AXIS IL 144 P 59 QRSd 87 QRS 55 QT 361 T 30 QTc 461 Conclusion Sinus rhythm...normal P axis, V-rate 60- 99 sinus rhythm at 98, normal axis, no acute ischemic changes, nondiagnostic EKG
--- NOTE | 2021-03-09 09:03 | W.ED.GENAD ---
Discharge Plan Disposition Patient Disposition: HOME Condition: Improving Discharge Details Clinical Impression: COVID-19, Hypokalemia Primary Care Provider: Tiffany Fleming ED Provider: Brittny Chavez Home Meds and New Rx's Prescriptions: New ondansetron 4 mg tablet,disintegrating 4 mg PO Q8H PRN PRNQty: 9 RF: 0 No Action ibuprofen 200 mg tablet 200 mg PO Q6H PRNRF: 0 acetaminophen 500 mg tablet 500 mg PO Q6H PRN PRN (Reason: pain) Qty: 40 RF: 3 medroxyprogesterone 150 mg/mL suspension 150 mg IM [id number] RF: 0 Discharge Instructions Instructions: Viral Syndrome (ED) Additional Instructions: Please return immediately to the emergency department if you develop any new or worsening symptoms, if your condition does not improve as expected, or if you become otherwise concerned. It is extremely important that you call soon as possible to make an appointment to be seen in follow-up for this visit by your primary care doctor. Please isolate from others as we discussed until your symptoms have resolved in order to prevent transmission of Covid to others. Referrals: Tiffany Fleming [Primary Care Provider] - Discharge Data Discharge Date/Time-TO BE ENTERED AT DEPARTURE: 03/09/21 13:42 Medical Decision Making Kathrin Nugent is a 20-year-old woman with a history of GERD who presented to emergency department with vomiting since yesterday in context of cough for 2 days, sore throat, body aches, fever, and receiving Covid booster shot 2 days ago. On exam patient is well and nontoxic-appearing. Lungs are clear to auscultation bilaterally, examination of the oropharynx shows mild erythema of the posterior pharynx without other abnormality. Concern for Covid infection, influenza, metabolic/electrolyte derangement, dehydration, other viral syndrome. Doubt vaccine reaction, bacterial pneumonia. Exam/history at this time is not consistent with pulmonary embolism, acute coronary syndrome, sepsis, bacterial meningitis, epiglottitis, RPA/[employer]/Zbigniew's angina/impending airway compromise. Plan for IV placement, EKG for tachycardia, IV fluid hydration, IV Zofran, screening labs, telemetry, CXR. Will monitor and reassess. Labs reviewed, urine test negative per nursing, potassium 3.3, anion gap 11.3, WBC 5.82. Covid positive. Patient with continued tachycardia approximately 1 time, plan for additional 1 L normal saline, will add D-dimer and troponin. Patient does not meet criteria for oral antivirals or antibody infusion. Troponin and D-dimer negative, heart rate improved to 90-100 after second liter of IV fluid, exam/history at this time is not consistent with myocarditis, pulmonary embolism. Patient drinking fluids in the ED, reports that she feels well and ready to be discharged. Patient reports that she has a plan to stay with her dad and isolate from her family in the house. I had a discussion with Patient regarding return to emergency department precautions, home care, and importance of outpatient follow-up. Pt verbalizes understanding of the plan and is amenable. Patient discharged to home with clear plan for outpatient follow-up. All questions were answered. Disposition decision was made weighing the risks and benefits of hospitalization versus outpatient treatment, the risk for further decompensation, and the patient's wishes. Medical Records Medical records reviewed: Yes I reviewed the patient's medical records. Imaging Data Radiologic Study: Attestation: I personally reviewed and interpreted this imaging study as follows: Radiologist's impression: Exam: XR Chest Exam date and time: 03/09/2021 12:18 PM Age: 20 years old Clinical indication: Patient HX: Cough , covid +, booster shot 2 days ago. ; Additional info: Has back pain, unable to sleep TECHNIQUE: Imaging protocol: XR of the chest. Views: 1 view. COMPARISON: No relevant prior studies available. FINDINGS: Lungs: Unremarkable. No consolidation. Pleural spaces: Unremarkable. No pleural effusion. No pneumothorax. Heart/Mediastinum: Unremarkable. No cardiomegaly. Bones/joints: Unremarkable. IMPRESSION: No acute findings. Lab Data Lab results reviewed: Yes I reviewed the patient's lab results. Labs: Laboratory Tests Range/Units 03/09/21 03/09/21 03/09/21 09:30 09:30 09:55 WBC (4.4-10.8) 10^3/uL RBC (3.93-5.22) 10^6/uL Hgb (11.2-15.7) g/dL Hct (36.0-46.0) % MCV (80-95) fL MCH (27.0-33.0) pg MCHC (32.0-36.0) % RDW (11.7-14.6) % Plt Count (130-400) 10^3/uL MPV (8.0-11.0) fL Immature Gran % Neutrophils % Lymphocytes % Monocytes % Eosinophils % Basophils % Nucleated RBC % % Absolute Neutrophils (1.2-6.7) 10^3/uL Absolute Lymphocytes (1.2-3.4) 10^3/uL Absolute Monocytes (0.1-0.8) 10^3/uL Absolute Eosinophils (0.0-0.7) 10^3/uL Absolute Basophils (0.0-0.2) 10^3/uL D-Dimer (<500) ng/mlFEU Sodium (136-145) mmol/L 137 Potassium (3.5-5.1) mmol/L 3.3 L Chloride (98-107) mmol/L 103 Carbon Dioxide (21.0-32.0) mmol/L 22.7 Anion Gap (3-11) mmol/L 11.3 H BUN (7-18) mg/dL 13 Creatinine (0.55-1.02) mg/dL 0.7 Estimated GFR/1.73 m2 (mL/min/1.73m2) >= 60.00 Glucose (74-106) mg/dL 94 Calcium (8.5-10.1) mg/dL 8.5 Total Bilirubin (0.2-1.0) mg/dL 0.2 AST (15-37) U/L 14 L ALT (14-59) U/L 22 Alkaline Phosphatase (46-116) U/L 68 Troponin I (<or=60) ng/L Total Protein (6.4-8.2) g/dL 7.3 Albumin (3.4-5.0) g/dL 3.6 Urine Color (Yellow) Yellow Urine Clarity (Clear) Clear Urine pH (5-8) 6.0 Ur Specific [place] (1.005-1.025) >= 1.030 H Urine Protein (Negative) mg/dL 30 H Urine Ketones (Negative) mg/dL 40 H Urine Blood (Negative) Large H Urine Nitrite (Negative) Negative Urine Bilirubin (Negative) Negative Urine Urobilinogen (Up TO 0.2) EU/dL 0.2 Ur Leukocyte Esterase (Negative) Negative Urine RBC (0-2) HPF 3-5 H Urine WBC (0-5) HPF 0-2 Ur Epithelial Cells (Negative) HPF Few Urine Crystals (Negative) HPF Negative Urine Bacteria (Negative) HPF Negative Urine Casts (Negative) LPF Negative Urine Mucus (Negative) Negative Ur Culture Indicated? No Urine Glucose (Negative) mg/dL Negative COVID-19 Source Nasal/Nares SARS-CoV-2 (PCR) (Negative) POSITIVE A* Range/Units 03/09/21 03/09/21 03/09/21 09:55 11:30 11:30 WBC (4.4-10.8) 10^3/uL 5.82 RBC (3.93-5.22) 10^6/uL 4.42 Hgb (11.2-15.7) g/dL 11.7 Hct (36.0-46.0) % 37.5 MCV (80-95) fL 84.8 MCH (27.0-33.0) pg 26.5 L MCHC (32.0-36.0) % 31.2 L RDW (11.7-14.6) % 13.2 Plt Count (130-400) 10^3/uL 145 MPV (8.0-11.0) fL 10.6 Immature Gran % 0.5 Neutrophils % 79.0 Lymphocytes % 10.8 Monocytes % 9.5 Eosinophils % 0.0 Basophils % 0.2 Nucleated RBC % % 0 Absolute Neutrophils (1.2-6.7) 10^3/uL 4.60 Absolute Lymphocytes (1.2-3.4) 10^3/uL 0.63 L Absolute Monocytes (0.1-0.8) 10^3/uL 0.55 Absolute Eosinophils (0.0-0.7) 10^3/uL 0.00 Absolute Basophils (0.0-0.2) 10^3/uL 0.01 D-Dimer (<500) ng/mlFEU 434 Sodium (136-145) mmol/L Potassium (3.5-5.1) mmol/L Chloride (98-107) mmol/L Carbon Dioxide (21.0-32.0) mmol/L Anion Gap (3-11) mmol/L BUN (7-18) mg/dL Creatinine (0.55-1.02) mg/dL Estimated GFR/1.73 m2 (mL/min/1.73m2) Glucose (74-106) mg/dL Calcium (8.5-10.1) mg/dL Total Bilirubin (0.2-1.0) mg/dL AST (15-37) U/L ALT (14-59) U/L Alkaline Phosphatase (46-116) U/L Troponin I (<or=60) ng/L < 50 Total Protein (6.4-8.2) g/dL Albumin (3.4-5.0) g/dL Urine Color (Yellow) Urine Clarity (Clear) Urine pH (5-8) Ur Specific [place] (1.005-1.025) Urine Protein (Negative) mg/dL Urine Ketones (Negative) mg/dL Urine Blood (Negative) Urine Nitrite (Negative) Urine Bilirubin (Negative) Urine Urobilinogen (Up TO 0.2) EU/dL Ur Leukocyte Esterase (Negative) Urine RBC (0-2) HPF Urine WBC (0-5) HPF Ur Epithelial Cells (Negative) HPF Urine Crystals (Negative) HPF Urine Bacteria (Negative) HPF Urine Casts (Negative) LPF Urine Mucus (Negative) Ur Culture Indicated? Urine Glucose (Negative) mg/dL COVID-19 Source SARS-CoV-2 (PCR) (Negative) ECG Data Attestation: I personally reviewed and interpreted this ECG (s) as follows: Interpretation: EKG shows sinus rhythm at 98, normal axis, no acute ischemic changes, nondiagnostic EKG HPI General Mode of arrival: ambulatory. Date/Time Provider Initiated Documentation: 03/09/21 08:50. Limitations to Documentation: no limitations. Information obtained by: patient, RN notes reviewed and old records reviewed. HPI Narrative: Kathrin Nugent is a 20-year-old woman with a history of GERD presenting to emergency department with chief complaint vomiting. Patient reports that patient noticed mild cough 2 days ago on the morning of the . Patient reports that she got her covid booster shot some point thereafter that day, and then that night approximately 11 PM began to feel ill. Patient reports that she had nausea, generalized body aches worse in her lower back, and subjective fever. Patient also reports worsening cough. Patient reports that she began vomiting yesterday has not been able to hold down food or fluids since that time. She reports continued generalized body aches, sore throat, lower and upper back pain, episodes of profuse sweating, diarrhea, and fever. Patient reports that she measured her temp to be 101 yesterday. She denies black or bloody diarrhea, shortness of breath, numbness, localized weakness, rash, swelling. Patient reports that she has been vaping for some time, and has noticed progressively worsening dry cough at baseline that she attributes to vaping. Patient reports that she also smokes marijuana daily and has done so for the past several years. She denies other recreational drug use, reports rare alcohol use. Patient reports that she currently has sore throat, aching in her arms and leg, and pain in her lower back that is mild. Patient reports that she has been taking ibuprofen for body ache which has been working well to lessen pain, last dose of ibuprofen at 7 AM today. Related Data Home Medications Medication Instructions Recorded Confirmed medroxyprogesterone 150 mg IM [id number] 08/21/20 03/09/21 acetaminophen 500 mg tablet 500 mg PO Q6H PRN PRN #40 tab 08/22/20 03/09/21 ibuprofen 200 mg tablet 200 mg PO Q6H PRN 09/04/20 03/09/21 ondansetron 4 mg PO Q8H PRN PRN #9 tab 03/09/21 Previous Rx's Medication Instructions Recorded acetaminophen 500 mg tablet 500 mg PO Q6H PRN PRN #40 tab 08/22/20 ondansetron 4 mg PO Q8H PRN PRN #9 tab 03/09/21 Allergies Allergy/AdvReac Type Severity Reaction Status Date / Time No Known Allergies Allergy Unverified 03/09/21 09:06 General JIMMIE: 2 Review of Systems Narrative: Constitutional: Reports fevers, sweating Eyes: denies eye pain ENT: denies ear pain, dental pain, reports sore throat Cardiovascular: denies chest pain, edema Respiratory: denies SOB, reports cough GI: denies abdominal pain, reports vomiting, diarrhea : denies flank pain MSK: denies neck pain, reports back pain, arthralgias, myalgias Skin: denies rash Neuro: denies headaches, numbness, weakness PFSH All Active Problems (Updated 03/09/21 @ 13:26 by Brittny Chavez MD) COVID-19 (Acute) Hypokalemia (Acute) Dog bite of forearm (Acute) Fracture of radius and ulna, distal, open (Acute) Social History Smoking/Tobacco Use Status: Current every day Tobacco Type: e-cigarettes Smoking risk assessment performed?: Yes Alcohol Intake: current Alcohol Intake frequency: holidays/special occasions only Drug use: Daily Substance use type: marijuana Current gender identity: female Do you feel safe at home: Yes Do you feel safe in your relationship?: Yes Exam Narrative Exam Narrative: Constitutional: well and [id number], pleasant, conversing normally HENT: head atraumatic/normocephalic/normal inspection, mucous membranes moist, mild erythema of the posterior pharynx, no exudate, no edema, uvula midline, no drooling, no pooling of secretions, normal voice, no intraoral lesion Eyes: conjunctiva normal, sclera normal, pupils 3mm b/l Neck: no stridor, normal ROM, trachea midline Resp: normal work of breathing, LCTAB Cardio: normal rate, normal rhythm, no murmur appreciated Back: normal inspection, mild tenderness palpation of the lower thoracic and lumbar spine without focality/point tenderness, no deformity, no crepitus, no overlying skin changes, no rash Skin: warm, dry, normal color, no rash Neuro: alert, not altered, grossly non-focal, normal tone Ext: no edema, no posterior calf tenderness to palpation Psych: normal mood, normal affect, normal behavior
[2021-03-09 09:33] LABS: Source Nasal/Nares
[2021-03-09 09:40] LABS: Bilirubin Negative (Negative); Blood Large (Negative); Clarity Clear (Clear); Glucose Negative (Negative); Ketones 40 mg/dL (Negative); Leukocyte Esterase Negative (Negative); Nitrite Negative (Negative); Specific Gravity >= 1.030 (1.005-1.025); Urobilinogen 0.2 EU/dL (Up TO 0.2)
[2021-03-09 09:49] LABS: WBC 0-2 HPF (0-5)
[2021-03-09] MEDS: Ondansetron 4 MG/2 ML VIAL IVP (09:49)
[2021-03-09 09:50] LABS: Bacteria Negative HPF (Negative); C & S Indicated? No; Casts Negative LPF (Negative); Crystals Negative HPF (Negative); Epithelial Cells Few HPF (Negative); Mucus Negative (Negative)
[2021-03-09] MEDS: Normal Saline 1,000 ML 1000 ML IV ×2 (09:54→10:25)
[2021-03-09 10:05] LABS: Abs Immature Grans 0.03 10^3/uL (0.0-0.06); Absolute Basophil Count 0.01 10^3/uL (0.0-0.2); Absolute Lymphocyte Count 0.63 10^3/uL (1.2-3.4); Absolute Monocyte Count 0.55 10^3/uL (0.1-0.8); Basophils % 0.2; HCT 37.5 % (36.0-46.0); HGB 11.7 g/dL (11.2-15.7); Immature Grans % 0.5; Lymphocytes % 10.8; MCH 26.5 pg (27.0-33.0); MCHC 31.2 % (32.0-36.0); MCV 84.8 fL (80-95); MPV 10.6 fL (8.0-11.0); Monocytes % 9.5; Nucleated RBC 0 %; Platelet Count 145 10^3/uL (130-400); RBC 4.42 10^6/uL (3.93-5.22); RDW 13.2 % (11.7-14.6); RDW-SD 41.1 fL; WBC 5.82 10^3/uL (4.4-10.8)
[2021-03-09 10:17] LABS: ALT 22 U/L (14-59); AST 14 U/L (15-37); Albumin 3.6 g/dL (3.4-5.0); Alkaline Phosphatase 68 U/L (46-116); Anion Gap 11.3 mmol/L (3-11); BUN 13 mg/dL (7-18); Bilirubin, Total 0.2 mg/dL (0.2-1.0); CO2 22.7 mmol/L (21.0-32.0); CREATININE 0.7 mg/dL (0.55-1.02); Calcium 8.5 mg/dL (8.5-10.1); Chloride 103 mmol/L (98-107); Glucose 94 mg/dL (74-106); Potassium 3.3 mmol/L (3.5-5.1); Sodium 137 mmol/L (136-145); Total Protein 7.3 g/dL (6.4-8.2)
[2021-03-09 10:18] LABS: COVID-19 PCR POSITIVE (Negative)
[2021-03-09 12:00] LABS: Troponin I < 50 ng/L (<or=60)
[2021-03-09 12:14] LABS: D-Dimer 434 ng/mlFEU (<500)
--- NOTE | 2021-03-09 12:36 | DI.RAD_ITS ---
Exam(s) XR PORTABLE CHEST AP EXAM: XR PORTABLE CHEST AP CLINICAL HISTORY: cough, covid +. TECHNIQUE: 2D digital imaging was performed. COMPARISON: No exams were available for comparison FINDINGS: LUNGS: Clear. No pleural abnormality seen. HEART: Normal. MEDIASTINUM: Normal. OTHER FINDINGS: None. IMPRESSION: No acute pulmonary findings. DATA REPOSITORY: RADIATION DOSE DELIVERED: Total DLP
[2021-03-09 12:50] VITALS: BP 141/82; PULSE 102; RESP 18; TEMP 36.8; O2SAT 98
[2021-03-09] MEDS: Potassium Chloride 20 MEQ TABCR 40 MEQ PO (13:08)
--- NOTE | 2021-03-09 13:19 | DI.VRAD_ITS ---
PROCEDURE INFORMATION: Exam: XR Chest Exam date and time: 03/09/2021 12:18 PM Age: 20 years old Clinical indication: Patient HX: Cough , covid +, booster shot 2 days ago. ; Additional info: Has back pain, unable to sleep TECHNIQUE: Imaging protocol: XR of the chest. Views: 1 view. COMPARISON: No relevant prior studies available. FINDINGS: Lungs: Unremarkable. No consolidation. Pleural spaces: Unremarkable. No pleural effusion. No pneumothorax. Heart/Mediastinum: Unremarkable. No cardiomegaly. Bones/joints: Unremarkable. IMPRESSION: No acute findings. Dictated and Authenticated by: Yenni Bae MD. Ordering:ONEIDA Mart MD
[2021-03-09 13:45] VITALS: BP 142/80; PULSE 108; RESP 18; TEMP 36.3; O2SAT 97
== END 2021-03-09 13:42 | disposition home or self-care (01) ==
PROVIDERS: Emergency Provider Student in an Organized Health Care Education/Training Program; PCP Physician Assistant
DX: U07.1 COVID-19 (principal); E87.6 Hypokalemia; R00.0 Tachycardia, unspecified; R11.10 Vomiting, unspecified; R05.1 Acute cough
CPT/HCPCS: 36415; 80053; 81025; 87635; 93005; 96361; 96374; 99284; 71045; 81003; 81015; 84484; 85025; 85379; 93010; J2405